=== PATIENT | female | born 1965 | race African-American/Black ===

== ENCOUNTER 2019-04-18 02:51 | Emergency (ER) | payer MEDICAID, OTHER ==
[~2019-04-18] VITALS: Ht 167.6 cm; Wt 119.0 kg
[2019-04-18] MEDS ORDERED: SODIUM CHLORIDE 0.9% 1,000 ML IV ONE (03:54)
[2019-04-18] MEDS ORDERED: ONDANSETRON HCL 4MG/2ML INJ IV STA (03:54)
[2019-04-18] MEDS ORDERED: FAMOTIDINE 20MG/2ML VIAL IV STA (03:54)
[2019-04-18] MEDS ORDERED: KETOROLAC 30MG/ML VIAL IV STA (03:54)
[2019-04-18 04:34] LABS: BASOPHILS % 0.9 % (0.0-2.0); EOSINOPHILS % 1.3 % (0.0-5.0); HEMOGLOBIN. 13.5 g/dL (12.0-16.0); LYMPHOCYTES % 24.5 % (20.0-50.0); MEAN CORPUSCULAR HEMOGLOBIN 28.3 pg (28.0-32.0); MEAN CORPUSCULAR VOLUME 88.3 fL (81.0-99.0); MEAN PLATELET VOLUME 8.9 fl (7.4-10.4); MONOCYTES % 7.2 % (2.0-8.0); NEUTROPHILS % 66.1 % (40.0-76.0); PLATELET 132 x1000/uL (130-400); RED BLOOD CELL COUNT 4.76 mill/uL (4.2-5.4); RED CELL DISTRIBUTION WIDTH 15.2 % (11.6-14.6)
[2019-04-18 04:50] LABS: CHLORIDE 111 mEq/L (98-107)
[2019-04-18 04:53] LABS: PROTHROMBIN TIME 10.6 sec (9.6-11.0)
[2019-04-18 04:55] LABS: ETHANOL BLOOD < 10 mg/dL
[2019-04-18 07:55] VITALS: BP 184/111
== END 2019-04-18 08:00 | disposition home or self-care (01) ==
LOC: ER 02:51
DX: K80.20 Calculus of gallbladder without cholecystitis without obstruction (principal); G40.909 Epilepsy, unspecified, not intractable, without status epilepticus; I10 Essential (primary) hypertension; Z88.0 Allergy status to penicillin
CPT/HCPCS: 36415; 76705; 80053; 80320; 83690; 85025; 85610; 96374; 96375; 99284; J1885; J2405; J3490; J7030; G0480

== ENCOUNTER 2021-05-23 04:46 | Emergency (ER) | payer MEDICAID, MEDICARE ==
[~2021-05-23] VITALS: Ht 165.1 cm; Wt 114.0 kg
[~2021-05-23 04:46] MED LIST: CLON0.2T MT; LEVO500T89 MT
[2021-05-23] MEDS ORDERED: ONDANSETRON HCL 4MG/2ML INJ IV STA (05:19)
[2021-05-23] MEDS ORDERED: MORPHINE SULFATE 4 MG/ML CPJ (NOT FOR IM USE) IV STA (05:19)
[2021-05-23] MEDS ORDERED: MORPHINE SULFATE 2 MG/ML CPJ (NOT FOR IM USE) IV NR (05:30)
[2021-05-23 05:56] LABS: EOSINOPHILS % 0.7 % (0.0-5.0); HEMOGLOBIN. 13.3 g/dL (12.0-16.0); LYMPHOCYTES % 26.7 % (20.0-50.0); MEAN CORPUSCULAR HEMOGLOBIN 30.1 pg (28.0-32.0); MEAN CORPUSCULAR VOLUME 90.6 fL (81.0-99.0); MEAN PLATELET VOLUME 8.3 fl (7.4-10.4); MONOCYTES % 6.6 % (2.0-8.0); PLATELET 176 x1000/uL (130-400); RED BLOOD CELL COUNT 4.42 mill/uL (4.2-5.4); RED CELL DISTRIBUTION WIDTH 18.7 % (11.6-14.6)
[2021-05-23 06:01] LABS: CLARITY URINE CLOUDY (CLEAR); COLOR URINE YELLOW (YELLOW); KETONES URINE TRACE (NEGATIVE); LEUKOCYTE ESTERASE URINE 1+ (NEGATIVE); NITRITE URINE NEGATIVE (NEGATIVE); OCCULT BLOOD URINE NEGATIVE (NEGATIVE); PH URINE 7.5 (4.5-8.0); PROTEIN URINE TRACE (NEGATIVE); SPECIFIC GRAVITY URINE 1.017 (1.005-1.030); UROBILINOGEN URINE 0.2 E.U./dL (0.2-1.0)
[2021-05-23 06:03] LABS: CHLORIDE 107 mEq/L (98-107)
[2021-05-23 06:05] LABS: PROTHROMBIN TIME 10.8 sec (9.6-11.0)
[2021-05-23] MEDS ORDERED: ONDA4TAB5 PO (06:47)
[2021-05-23] MEDS ORDERED: T3 PO (06:47)
[2021-05-23 07:30] VITALS: BP 189/99
== END 2021-05-23 07:36 | disposition home or self-care (01) ==
LOC: ER 04:46
DX: K80.70 Calculus of gallbladder and bile duct without cholecystitis without obstruction (principal); I10 Essential (primary) hypertension; F17.210 Nicotine dependence, cigarettes, uncomplicated; F14.10 Cocaine abuse, uncomplicated; Z88.0 Allergy status to penicillin
CPT/HCPCS: 36415; 76700; 80053; 81003; 81025; 83690; 85025; 85610; 93005; 96374; 96375; 99285; J2270; J2405

== ENCOUNTER 2022-09-01 07:25 | Inpatient (IN) | payer MEDICAID, MEDICARE ==
[~2022-09-01] VITALS: Ht 167.6 cm; Wt 108.9 kg
[2022-09-01] MEDS: IPRATROPIUM BROMIDE (0.02%) 0.5MG/2.5ML NEB HHN SCH ×3 (00:35→16:16)
[~2022-09-01 07:25] MED LIST changes: -LEVO500T89 MT; +LOSA50TA3 PO; +ONDA4TAB5 PO
[2022-09-01] MEDS ORDERED: albuterol (07:31)
[2022-09-01] MEDS ORDERED: PREDNISONE 20MG TABLET PO STA (07:34)
[2022-09-01] MEDS ORDERED: ALBUTEROL (0.083%) 2.5MG/3ML NEB HHN STA (07:34)
[2022-09-01] MEDS ORDERED: IPRATROPIUM BROMIDE (0.02%) 0.5MG/2.5ML NEB HHN STA (07:34)
[2022-09-01 09:00] LABS: CHLORIDE 111 mEq/L (98-107)
[2022-09-01 09:03] LABS: BASOPHILS % 0.8 % (0.0-2.0); EOSINOPHILS % 0.9 % (0.0-5.0); HEMOGLOBIN. 12.1 g/dL (12.0-16.0); MEAN CORPUSCULAR HEMOGLOBIN 29.2 pg (28.0-32.0); MEAN CORPUSCULAR VOLUME 91.7 fL (81.0-99.0); MEAN PLATELET VOLUME 8.7 fl (7.4-10.4); MONOCYTES % 8.3 % (2.0-8.0); PLATELET 147 x1000/uL (130-400); RED BLOOD CELL COUNT 4.14 mill/uL (4.2-5.4)
[2022-09-01] MEDS ORDERED: ASPIRIN 325MG EC TABLET PO ONE (11:15)
[2022-09-01] MEDS ORDERED: HYDRALAZINE 20MG/ML VIAL IV ONE (11:15)
[2022-09-01] MEDS ORDERED: NIFEDIPINE XL 60MG TAB PO SCH (12:00)
[2022-09-01] MEDS ORDERED: ONDANSETRON HCL 4MG/2ML INJ IV PRN (12:00)
[2022-09-01] MEDS ORDERED: LORAZEPAM 2MG/ML CPJ IV PRN (12:30)
[2022-09-01] MEDS: HYDRALAZINE HCL 100MG TABLET PO SCH ×2 (13:49→22:04)
[2022-09-01] MEDS ORDERED: CLONIDINE 0.1MG TABLET PO PRN (16:15)
[2022-09-01] MEDS: METHYLPREDNISOLONE SOD SUCC 40 MG/ML VIAL IV SCH (17:32)
[2022-09-01] MEDS: LOSARTAN POTASSIUM 100 MG TABLET PO SCH (17:35)
[2022-09-01] MEDS: NIFEDIPINE XL 60MG TAB PO SCH (18:00)
[2022-09-01 21:20] VITALS: BP 148/62
[2022-09-01] MEDS: FAMOTIDINE 20MG TABLET PO SCH (22:03)
[2022-09-02] VITALS: BP 113/59
[2022-09-02] MEDS: METHYLPREDNISOLONE SOD SUCC 40 MG/ML VIAL IV SCH ×3 (00:46→17:20)
[2022-09-02 04:00] VITALS: BP 139/83
[2022-09-02] MEDS: IPRATROPIUM BROMIDE (0.02%) 0.5MG/2.5ML NEB HHN SCH ×5 (04:30→20:09)
[2022-09-02] MEDS: HYDRALAZINE HCL 100MG TABLET PO SCH ×3 (05:27→21:40)
[2022-09-02 08:00] VITALS: BP 100/70
[2022-09-02] MEDS: LOSARTAN POTASSIUM 100 MG TABLET PO SCH (09:00)
[2022-09-02] MEDS: NIFEDIPINE XL 60MG TAB PO SCH ×2 (09:00→17:00)
[2022-09-02 12:00] VITALS: BP 107/61
[2022-09-02 16:00] VITALS: BP 106/58
[2022-09-02 16:39] LABS: *AMPHETAMINES SCREEN URINE NEGATIVE (NEGATIVE); *BARBITURATES SCREEN URINE NEGATIVE (NEGATIVE); *BENZODIAZEPINES SCREEN URINE NEGATIVE (NEGATIVE); *COCAINE SCREEN URINE PRESUMTIVE POSITIVE (NEGATIVE); CANNABINOID URINE SCREEN NEGATIVE (NEGATIVE); METHADONE URINE SCREEN NEGATIVE (NEGATIVE); OPIATES URINE SCREEN NEGATIVE (NEGATIVE); PHENCYCLIDINE URINE SCREEN NEGATIVE (NEGATIVE)
[2022-09-02] MEDS: ACETAMINOPHEN 325MG TABLET PO PRN (17:21)
[2022-09-02 20:00] VITALS: BP 104/60
[2022-09-02] MEDS: FAMOTIDINE 20MG TABLET PO SCH (21:39)
[2022-09-03] VITALS: BP 110/60
[2022-09-03] MEDS: METHYLPREDNISOLONE SOD SUCC 40 MG/ML VIAL IV SCH ×2 (01:06→09:20)
[2022-09-03] MEDS: IPRATROPIUM BROMIDE (0.02%) 0.5MG/2.5ML NEB HHN SCH ×4 (02:10→12:42)
[2022-09-03 04:00] VITALS: BP 118/69
[2022-09-03] MEDS: HYDRALAZINE HCL 100MG TABLET PO SCH ×2 (05:07→14:14)
[2022-09-03 08:00] VITALS: BP 117/61
[2022-09-03] MEDS: NIFEDIPINE XL 60MG TAB PO SCH (09:20)
[2022-09-03] MEDS: LOSARTAN POTASSIUM 100 MG TABLET PO SCH (09:20)
[2022-09-03] MEDS ORDERED: GUAIFENESIN-DM 200MG-20MG/10ML UDC PO PRN (11:15)
[2022-09-03] MEDS: ACETAMINOPHEN 325MG TABLET PO PRN (11:28)
[2022-09-03 12:00] VITALS: BP 129/74
[2022-09-03] MEDS ORDERED: P20 MT (13:34)
[2022-09-03 14:26] VITALS: BP 129/74
== END 2022-09-03 15:44 | disposition home or self-care (01) | DRG 140 ==
LOC: ER 07:25 → 8WST 11:05 → EDBEDREQTM 11:21 → EDBEDREQ 11:21
PROVIDERS: ADMIT Internal Medicine; ATTEND Internal Medicine
DX: J44.1 Chronic obstructive pulmonary disease with (acute) exacerbation (principal); J96.01 Acute respiratory failure with hypoxia; I11.0 Hypertensive heart disease with heart failure; I50.9 Heart failure, unspecified; Z20.822 Contact with and (suspected) exposure to COVID-19; F17.210 Nicotine dependence, cigarettes, uncomplicated; I16.1 Hypertensive emergency; Z88.0 Allergy status to penicillin; F14.90 Cocaine use, unspecified, uncomplicated
CPT/HCPCS: 36415; 71045; 80053; 80305; 83880; 84484; 85025; 87340; 87426; 87804; 93005; 93306; 94640; 99285; C1893; C9803; J0360; J2060; J2920; J7512

== ENCOUNTER 2022-12-31 20:42 | Emergency (ER) | payer MEDICARE ==
[~2022-12-31] VITALS: Ht 167.6 cm; Wt 112.2 kg
[~2022-12-31 20:42] MED LIST changes: +LOSA-413 PO; -LOSA50TA3 PO; +P20 MT; +albuterol
[2022-12-31 21:30] LABS: BASOPHILS % 0.5 % (0.0-2.0); EOSINOPHILS % 1.4 % (0.0-5.0); HEMOGLOBIN. 11.9 g/dL (12.0-16.0); LYMPHOCYTES % 36.6 % (20.0-50.0); MEAN CORPUSCULAR HEMOGLOBIN 27.6 pg (28.0-32.0); MEAN PLATELET VOLUME 8.1 fl (7.4-10.4); MONOCYTES % 10.2 % (2.0-8.0); NEUTROPHILS % 51.3 % (40.0-76.0); PLATELET 158 x1000/uL (130-400); RED BLOOD CELL COUNT 4.32 mill/uL (4.2-5.4); RED CELL DISTRIBUTION WIDTH 17.6 % (11.6-14.6)
[2022-12-31 21:40] LABS: CHLORIDE 113 mEq/L (98-107)
[2022-12-31] MEDS ORDERED: ASPIRIN 81MG TABLET PO ONE (21:45)
[2022-12-31] MEDS ORDERED: FUROSEMIDE 40MG/4ML VIAL IV ONE (21:45)
[2022-12-31 21:50] LABS: ETHANOL BLOOD < 10 mg/dL
[2022-12-31 23:24] LABS: CLARITY URINE CLEAR (CLEAR); COLOR URINE YELLOW (YELLOW); KETONES URINE NEGATIVE (NEGATIVE); LEUKOCYTE ESTERASE URINE NEGATIVE (NEGATIVE); NITRITE URINE NEGATIVE (NEGATIVE); OCCULT BLOOD URINE NEGATIVE (NEGATIVE); PH URINE 5.5 (4.5-8.0); PROTEIN URINE NEGATIVE (NEGATIVE); SPECIFIC GRAVITY URINE 1.006 (1.005-1.030); UROBILINOGEN URINE 0.2 E.U./dL (0.2-1.0)
[2022-12-31 23:55] LABS: *AMPHETAMINES SCREEN URINE NEGATIVE (NEGATIVE); *BARBITURATES SCREEN URINE NEGATIVE (NEGATIVE); *BENZODIAZEPINES SCREEN URINE NEGATIVE (NEGATIVE); *COCAINE SCREEN URINE PRESUMTIVE POSITIVE (NEGATIVE); CANNABINOID URINE SCREEN NEGATIVE (NEGATIVE); METHADONE URINE SCREEN NEGATIVE (NEGATIVE); OPIATES URINE SCREEN NEGATIVE (NEGATIVE); PHENCYCLIDINE URINE SCREEN NEGATIVE (NEGATIVE)
[2023-01-01 08:00] VITALS: BP 169/102
== END 2023-01-01 08:47 | disposition short-term general hospital (02) ==
LOC: ER 20:42
DX: R06.03 Acute respiratory distress (principal); T40.5X1A Poisoning by cocaine, accidental (unintentional), initial encounter; I10 Essential (primary) hypertension; Z88.0 Allergy status to penicillin; Z20.822 Contact with and (suspected) exposure to COVID-19; Y92.9 Unspecified place or not applicable
CPT/HCPCS: 36415; 71045; 80053; 80305; 80320; 81003; 83880; 84484; 85025; 87426; 93005; 96374; 99285; C9803; J1940; Z7610; G0480